=== PATIENT | male | born 1950 | race Caucasian/White ===

== ENCOUNTER 2016-12-11 06:47 | Emergency (ER) | payer SELFPAY ==
[~2016-12-11 06:47] MED LIST: ATACAND4 MG PO; CARDIZEM C1 PO; COMBIVENT RESPIMAT IN; FUROSEMIDE40 MG PO; ISOSORBIDE MONO30 MG PO; XARELTO10 MG PO; XARELTO15 MG PO
--- NOTE | 2016-12-11 08:34 | DIAGNOSTIC IMAGING REPORT ---
PROCEDURE: XR CHEST 1 VIEW INDICATION: SHORTNESS OF BREATH TECHNIQUE: Portable AP view (00 5 hours). COMPARISON: Compared to chest x-ray on 11/13/2016 and 10/24/2016. FINDINGS: Moderate cardiomegaly with mild pulmonary vascular congestion and interstitial changes. Mediastinum is normal. Thorax is normal. IMPRESSION: 1. Moderate cardiomegaly with mild congestive heart failure. 2. Findings discussed with Dr. Paniagua.
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
--- NOTE | 2016-12-11 09:42 | ED CLINICAL REPORT ---
Clinical Report - Physicians/Mid Levels [facility] [address] [place] [address] 12/11/2016 6:58 Patient: CLAYTON SRIVASTAVA Time Seen: 0645. Arrived- By private vehicle. Historian- patient. HISTORY OF PRESENT ILLNESS Chief Complaint: DYSPNEA. This started Early this morning and is still present (worsening). It was abrupt in onset but is not gone now. The dyspnea is worsened by exertion and is improved by rest. No sputum production, fever, sweating episodes or chest pain or discomfort. No calf pain, foot swelling or anxiety. Similar symptoms previously: ( history of atrial fibrillation). Recent medical care: Not recently seen/assessed. REVIEW OF SYSTEMS No nausea, vomiting, abdominal pain, black stools or bloody stools. No headache, blurred vision or skin rash. All systems otherwise negative, except as recorded above. PAST HISTORY See nurses notes. Risk factors for DVT/pulmonary embolism- prior history of DVT and pulmonary embolism, recent surgery, recent [place], congestive heart failure, clotting disorder, obesity, immobility and advanced age. SOCIAL HISTORY Smoker- current status unknown. No alcohol use or drug use. Is a local resident. FAMILY HISTORY Negative. ADDITIONAL NOTES The nursing notes have been reviewed. PHYSICAL EXAM Vital Signs: 12/11/2016 06:51 BP: 120/76. HR: 158. RR: 34. Temp: 97.7 F. Pain level now: 0/10. Oxygen saturation normal. Appearance: Alert. Patient in mild distress. Eyes: Pupils equal, round and reactive to light. Eyes normal inspection. ENT: Ears normal. Nose normal. Pharynx normal. Uvula midline. Neck: Normal inspection. No jugular venous distention. Neck supple. CVS: Normal heart rate and rhythm. Heart sounds normal. Pulses normal. Respiratory: No respiratory distress. Breath sounds normal. No stridor, rales or rhonchi. Abdomen: Soft and nontender. No organomegaly. Skin: Skin warm and dry. Normal skin color. No rash. Normal skin turgor. Extremities: Extremities exhibit normal ROM. No lower extremity edema. Neuro: Oriented X 3. No motor deficit. No sensory deficit. LABS, X-RAYS, AND EKG EKG: Atrial fibrillation (124). Abnormal P waves. Normal QRS complex. Normal axis. Normal ST and T waves. No ST elevation or depression. The study has been interpreted contemporaneously by me. The study has been independently viewed by me. The EKG appears to be a good tracing. I agree with and confirm the computer reading of the EKG. EKG #2: Atrial fibrillation (96). Not narrow complex atrial fibrillation. Abnormal P waves. Abnormal NI. Normal QRS complex. Normal axis. Normal ST and T waves, QT and QTc. When compared to prior EKG, new ischemic changes present. (rate controlled). The study has been interpreted contemporaneously. The study has been independently viewed by me. The EKG appears to be a good tracing. I agree with and confirm the computer reading of the EKG. Chest X-ray: (cardiomegaly. Increased pulmonary vasculature. No consolidations.). Views: PA. The X-rays were independently viewed by me and interpreted contemporaneously by me. A comparison with prior films reveals that the findings have worsened (Increased pulmonary vasculature.). CTA Pulmonary Arteries: Cardiomegaly. No evidence of pulmonary embolism. No pulmonary embolism, aortic aneurysm or aortic dissection. signs of congestive heart failure. No evidence of pulmonary embolism. The CTA was performed with contrast. The study was independently viewed by me and interpreted by the radiologist. The study was discussed with the radiologist (Via phone). Laboratory Tests: CBC w Diff: (NORA: 12/11/2016 07:05) ( MsgRcvd 12/11/2016 07:30) Final results Test Result Flag Units (Reference) WHITE BLOOD COUNT 7.8 K/uL (4.5-11.5) RED BLOOD COUNT 4.39 L M/uL (4.50-5.90) HEMOGLOBIN 12.4 L gm/dL (13.5-17.5) HEMATOCRIT 38.2 L % (41.0-53.0) MEAN CELL VOLUME 87 fL (80-100) MEAN CORPUSCULAR HGB 28 pg (26-34) MEAN CORPUSCULAR HGB CONC 32 g/dL (31-37) RED CELL DISTRIBUTION WIDTH 14.6 % (11.6-14.8) PLATELET COUNT 279 K/uL (150-400) NEUTROPHIL % 70.4 % (50-75) LYMPH % 21.2 L % (25-40) MONO % 6.8 % (3-14) EOSINOPHIL % 1.1 % (0-4) BASOPHIL % 0.5 % (0-2) PT with INR: (NORA: 12/11/2016 07:05) ( MsgRcvd 12/11/2016 07:32) Final results Test Result Flag Units (Reference) INR 1.1 (0.8-1.2) Low Intensity Therapy: INR 1.5-2.0 PT range 18.5-23.1Mod.Intensity Therapy: INR 2.0-3.0 PT range 23.1-31.5High Intensity Therapy: INR 2.5-3.5 PT range 27.4-35.5High Intensity Therapy 2: INR 3.0-4.0 PT range 31.5-39.3 D-DIMER QUANTITATIVE 0.84 H ug/mLFEU (0.27-0.52) The primary value of this quantitative assay relates toits negative predictive value (i.e. exclusion) of pulmonaryembolism/deep vein thrombosis/DIC.Elevated levels of d-dimer may also occur with:, age, cancer, inflammation, liver disease,post-op, infection, hematoma, coronary disease, peripheralarteriopathy, bleeding disorders and thrombolytic treatment.Results should be correlated with other clinical andradiological data.Testing Methodology: Latex Immunoassay . PROGRESS AND PROCEDURES Course of Care: the patient is a pleasant 66-year-old male with past medical history significant for atrial fibrillation and congestive heart failure. The patient presents for evaluation of shortness of breath. Patient has somewhat concerning story for shortness of breath. At this time differential diagnosis for thetrigger of the A. fib would be acute myocardial infarction, pulmonary embolism, or infectious etiology. Patient is in a mild amount of distress. Had discussion with patient in regards to cardioversion if he starts to become unstable. Patient's is agreeable to the treatment and plan. We'll monitor closely. 10 mg of diltiazem has been ordered for rate control of the patient's atrial fibrillation with rapid ventricular response. EKG, chest x-ray, and laboratory studies have been ordered. Patient was reevaluated after that the size and has been given. Patient with significant improvement with symptoms. Chest x-ray is also definitereviewed and the preliminary read is concerning for mild fluid overload. Patient with cardiomegaly on chest x-ray. EKG again redemonstrates atrial fibrillation with rapid ventricular response from initial presentation and repeat EKG has been ordered as patient now does not have a rapid ventricular response. The patient's laboratory studies has been remarkable for an elevated troponin. Patient's troponin is elevated greater than D upper limits of normal for indeterminate range. We will consult cardiology with these findings. the patient was reevaluated and continues to be non-tachycardic. D dimer is elevated. CT PE ordered. Patient's BNP is also elevated. Had discussion with cardiology in regards to the patient's signs and symptoms as well as his laboratory studies here in the emergency department today. Radiology recommended that the patient be admitted to their hospital. Spoke with babita mayer is a mid-level provider. The provider stated that there was a criticalcase they were attending to. they did offer to contact the house furnishings supervisor for good placement and consult of the hospitalist however because of the critical case they were having on their side, offered to contact their staff myself. Started heparin per cardiology's recs. We were able to contact the house furnishings supervisor about the patient. The patient is currently awaiting hospitalist consultation and bed availability. Had spoken to patient in regards to the workup, diagnosis, and plan of care. Patient is agreeable to the treatment and plan. patient transfered. Critical care performed (95 minutes). Time is exclusive of separately billable procedures. Time includes: direct patient care, patient reassessment, coordination of patient care, interpretation of data (laboratory data and chest xrays), review of patient's medical records, medical consultation and documentation of patient care. Consult obtained from cardiology. Disposition: Transferred to [facility]. CLINICAL IMPRESSION Non-ST segment elevation myocardial infarction atrial fibrillation with rapid ventricular response congestive heart failure, acute exacerbation. (Electronically signed by Ari Paniagua Dr. 12/15/2016 5:53)
--- NOTE | 2016-12-11 09:43 | ED ORDER SUMMARY ---
..... Patient: CLAYTON SRIVASTAVA OrderSheet [facility] VisitID: [id number] [address] [place] [address] 66y, M Registration Date/Time: 12/11/2016 ORDER SHEET Weight: 92.9 kg (stated) Allergies: No Known Drug Allergy GENERAL ORDERS: Chest 1V Urgent (06:56 12/11/2016 Socorro Keller) (Ack 7:03 JDeElena R.N.) (7:07 RFay) Official Court Reporter (Continuous) (sob) (06:56 12/11/2016 Socorro Keller) (7:00 JDeElena R.N.) CBC w Diff Urgent (06:57 12/11/2016 Socorro Keller) (Ack 7:03 JDeElena R.N.) (7:12 SBalde R.N.) CMP Urgent (06:12/11/2016 Socorro Keller) (Ack 7:03 JDeElena R.N.) (7:12 SBalde R.N.) PT with INR Urgent (06:57 12/11/2016 Socorro Keller) (Ack 7:03 JDeElena R.N.) (7:12 SBalde R.N.) Troponin-I Urgent (06:57 12/11/2016 Socorro Keller) (Ack 7:03 JDeElena R.N.) (7:12 SBalde R.N.) D-Dimer Urgent (06:57 12/11/2016 Socorro Keller) (Ack 7:03 JDeElena R.N.) (7:12 SBalde R.N.) Pulse oximeter (06:57 12/11/2016 Socorro Keller) (7:00 JDeElena R.N.) Oxygen (2 L/min) (NC) (06:57 12/11/2016 Socorro Keller) (7:00 JDeElena R.N.) TSH Urgent (07:28 12/11/2016 Socorro Keller) (7:48 EHassan R.N.) CTA Thorax w Cont (No) (grf > 60) Urgent (07:55 12/11/2016 Socorro Keller) (Ack 8:01 [facility] (10:06 Carie R.N.) BNP Urgent (08:34 12/11/2016 Socorro Keller) (Ack 8:38 [facility]) (9:33 EHnellie R.N.) EKG - ER Stat (09:15 12/11/2016 [facility] verbal order read back to Socorro Keller) (9:[facility] - ER Repeat Stat (09:15 [facility] Socorro Keller[facility] (9:15 [facility]) Urinalysis Urgent (10:13 12/11/2016 Carie Ngo verbal order read back to Socorro Keller) (10:14 Carie R.N.) MEDICATION ORDERS: Metoprolol PO 25 mg (HIGH ALERT MEDICATION, NOW) (09:34 12/11/2016 Socorro Keller) (10:07 Carie R.N.) IV FLUIDS: IV NS : initial bolus 1000 mL (1000 mL/hr), then none - for X1 (NOW) (06:56 12/11/2016 Socorro Keller) (7:13 SBmitchell R.N.) Diltiazem IV 10 mg (HIGH ALERT MEDICATION, NOW) (06:56 12/11/2016 Socorro Keller) (7:13 Laxmi R.N.) Heparin IV : initial bolus 60 units/kg, then none - for X1 (once now. max 5000 u) (09:40 12/11/2016 Socorro Keller) (10:30 Carie R.N.) Heparin IV : initial bolus none -, then 12 units/kg/hr for 24h (start after bolus. max 1000 u/hr) (09:40 12/11/2016 Socorro Keller) (10:31 Carie R.N.) ORDER SHEET NOTES: [Electronically signed by Jennifer Sandoval R.N. (13:47 12/11/2016)] [Electronically signed by Ari Paniagua Dr. (05:53 12/15/2016)] [Electronically locked/signed by Jennifer Sandoval R.N. (13:47 12/11/2016)Lalo
--- NOTE | 2016-12-11 09:43 | ED ORDER SUMMARY ---
..... Patient: CLAYTON SRIVASTAVA OrderSheet [facility] VisitID: [id number] [address] [place] [address] 66y, M Registration Date/Time: 12/11/2016 ORDER SHEET Weight: 92.9 kg (stated) Allergies: No Known Drug Allergy GENERAL ORDERS: Chest 1V Urgent (06:56 12/11/2016 Socorro Keller) (Ack 7:03 JDeElena R.N.) (7:07 RFay) Soft Work Wrapper Layer And Examiner (Continuous) (sob) (06:56 12/11/2016 Socorro Keller) (7:00 JDeElena R.N.) CBC w Diff Urgent (06:57 12/11/2016 Socorro Keller) (Ack 7:03 JDeElena R.N.) (7:12 SBalde R.N.) CMP Urgent (06:12/11/2016 Socorro Keller) (Ack 7:03 JDeElena R.N.) (7:12 SBalde R.N.) PT with INR Urgent (06:57 12/11/2016 Socorro Keller) (Ack 7:03 JDeElena R.N.) (7:12 SBalde R.N.) Troponin-I Urgent (06:57 12/11/2016 Socorro Keller) (Ack 7:03 JDeElena R.N.) (7:12 SBalde R.N.) D-Dimer Urgent (06:57 12/11/2016 Socorro Keller) (Ack 7:03 JDeElena R.N.) (7:12 SBalde R.N.) Pulse oximeter (06:57 12/11/2016 Socorro Keller) (7:00 JDeElena R.N.) Oxygen (2 L/min) (NC) (06:57 12/11/2016 Socorro Keller) (7:00 JDeElena R.N.) TSH Urgent (07:28 12/11/2016 Socorro Keller) (7:48 EHassan R.N.) CTA Thorax w Cont (No) (grf > 60) Urgent (07:55 12/11/2016 Socorro Keller) (Ack 8:01 [facility]) (10:06 Carie R.N.) BNP Urgent (08:34 12/11/2016 Socorro Keller) (Ack 8:38 [facility]) (9:33 EHnellie R.N.) EKG - ER Stat (09:15 12/11/2016 [facility] verbal order read back to Socorro Keller) ([facility] EKG - ER Repeat Stat (09:15 [facility]/2016 [facility] Socorro Keller[facility] (9:15 [facility]) Urinalysis Urgent (10:13 12/11/2016 Carie Ngo verbal order read back to Socorro Keller) (10:14 Carie R.N.) MEDICATION ORDERS: Metoprolol PO 25 mg (HIGH ALERT MEDICATION, NOW) (09:34 12/11/2016 Socorro Keller) (10:07 Carie R.N.) IV FLUIDS: IV NS : initial bolus 1000 mL (1000 mL/hr), then none - for X1 (NOW) (06:56 12/11/2016 Socorro Keller) (7:13 SBmitchell R.N.) Diltiazem IV 10 mg (HIGH ALERT MEDICATION, NOW) (06:56 12/11/2016 Socorro Keller) (7:13 Laxmi R.N.) Heparin IV : initial bolus 60 units/kg, then none - for X1 (once now. max 5000 u) (09:40 12/11/2016 Socorro Keller) (10:30 Carie R.N.) Heparin IV : initial bolus none -, then 12 units/kg/hr for 24h (start after bolus. max 1000 u/hr) (09:40 12/11/2016 Socorro Keller) (10:31 Carie R.N.) ORDER SHEET NOTES: [Electronically signed by Jennifer Sandoval R.N. (13:47 12/11/2016)] [Electronically signed by Ari Paniagua Dr. (05:53 12/15/2016)] [Electronically locked/signed by Jennifer Sandoval R.N. (13:47 12/11/2016)Lalo
--- NOTE | 2016-12-11 10:21 | DIAGNOSTIC IMAGING REPORT ---
PROCEDURE: CTA THORAX WITH CONTRAST INDICATION: SHORTNESS OF BREATH TECHNIQUE: 124 ml of Isovue 370 was injected intravenously and axial images were obtained of the entire thorax with 3D sagittal and coronal MIP reconstructions. COMPARISON: Comparison made to chest x-ray earlier today (see 12/11/2016) FINDINGS: Moderate cardiomegaly with mild pulmonary vascular congestion, and mild interstitial edema. There is a small to moderate right pleural effusion with small left pleural effusion. There is mild bibasilar compressive atelectasis (right greater than left). Allowing for mild motion, pulmonary vessels are normal and there is no evidence of pulmonary embolus. Mediastinum is normal. There are moderate degenerative changes of the thoracic spine. There are three to four calcified gallstones (largest 2 cm). IMPRESSION: 1. Moderate cardiomegaly with mild to moderate congestive heart failure. 2. Small to moderate right and small left pleural effusions. 3. Mild bibasilar compressive atelectasis (right greater than left). 4. No evidence of pulmonary embolus. 5. Cholelithiasis (3-4 calcified gallstones, largest 2 cm). 6. Findings discussed with Dr. Grant Cormier. All CT scans at this facility use dose modulation, iterative reconstruction, and/or weight-based dosing when appropriate to reduce radiation dose to as low as reasonably achievable.
--- NOTE | 2016-12-15 05:54 | ED MAR SUMMARY ---
..... Medication Administration Record [facility] [address] [place] [address] Patient: CLAYTON SRIVASTAVA Visit ID: [id number] 66y, M Weight: 92.9 kg Height/Length: 72 in BMI: 27.8 ALLERGIES: No Known Drug Allergy Start 07:13 12/11/2016 Kiana Sandoval R.N., Stop 08:37 12/11/2016 Akua Urrutia R.N. Medication Administered: IV NS (SALINE), Dose: IV Fluids over 1 hour(s), Rate: 1000 mL/hr, Dispensed: 1000 mL bag, Site: #1 left hand. Medication Ordered: IV NS : initial bolus 1000 mL (1000 mL/hr), then none - for X1 (NOW). Given 07:12/11/2016 Kiana Sandoval R.N. Medication Administered: DILTIAZEM [IVP], Dose: 10 mg IVP over 4 minute(s), Site: #1 left hand. Medication Ordered: Diltiazem IV 10 mg (HIGH ALERT MEDICATION, NOW). Given 10:07 12/11/2016 Jennifer Sandoval R.N. Medication Administered: METOPROLOL [PO], Dose: 25 mg Tablets PO. Medication Ordered: Metoprolol PO 25 mg (HIGH ALERT MEDICATION, NOW). Given 10:28 12/11/2016 Jennifer Sandoval R.N. Medication Administered: HEPARIN [IVP], Dose: 2500 unit IVP over 3 minute(s), Site: #1 left hand. Medication Ordered: Heparin IV : initial bolus 60 units/kg, then none - for X1 (once now. max 5000 u). Given 10:31 12/11/2016 Jennifer Sandoval R.N. Medication Administered: HEPARIN [IVP], Dose: 2500 unit IVP over 6 hour(s), Site: #1 left hand. Medication Ordered: Heparin IV : initial bolus none -, then 12 units/kg/hr for 24h (start after bolus. max 1000 u/hr).
--- NOTE | 2016-12-15 05:54 | ED DISCHARGE INSTRUCTIONS ---
Patient: CLAYTON SRIVASTAVA General Instructions [facility] VisitID: [id number] [address] [place] [address] 66y, M Registration Date/Time: 12/11/2016 Non-ST segment elevation myocardial infarction atrial fibrillation with rapid ventricular response congestive heart failure, acute exacerbation. (Electronically signed by Ari Paniagua Dr. 12/15/2016 5:53)
--- NOTE | 2016-12-15 05:54 | ED MED RECONCILIATION SUMMARY ---
Patient: CLAYTON SRIVASTAVA Medication Reconciliation Report [facility] VisitID: [id number] [address] [place] [address] 66y, M Registration Date/Time: 12/11/2016 Weight: 92.9 kg Height/Length: 72 in. BMI: 27.8 ALLERGIES: No Known Drug Allergy The patient's Home Medications are listed below: THE FOLLOWING MEDICATIONS NEED TO BE RECONCILED: Digoxin Oral Diuretics x 2 INHALER Xarelto Oral The source(s) of the original Home Medication information: patient The following Medications were given to the patient in the Emergency Department: IV NS IV Fluids bolus 0, then 1000 mL/hr, administered: 12/11/2016 7:13:00 AM Diltiazem [IVP] IVP 10 mg, administered: 12/11/2016 7:13:00 AM Metoprolol [PO] PO 25 mg, administered: 12/11/2016 10:07:00 AM Heparin [IVP] IVP 2500 unit, administered: 12/11/2016 10:28:00 AM Heparin [IVP] IVP 2500 unit, administered: 12/11/2016 10:31:00 AM The following Medications were prescribed to the patient: None.
--- NOTE | 2016-12-15 05:54 | ED MAR SUMMARY ---
..... Medication Administration Record [facility] [address] [place] [address] Patient: CLAYTON SRIVASTAVA Visit ID: [id number] 66y, M Weight: 92.9 kg Height/Length: 72 in BMI: 27.8 ALLERGIES: No Known Drug Allergy Start 07:13 12/11/2016 Kiana Sandoval R.N., Stop 08:37 12/11/2016 Akua Urrutia R.N. Medication Administered: IV NS (SALINE), Dose: IV Fluids over 1 hour(s), Rate: 1000 mL/hr, Dispensed: 1000 mL bag, Site: #1 left hand. Medication Ordered: IV NS : initial bolus 1000 mL (1000 mL/hr), then none - for X1 (NOW). Given 07:12/11/2016 Kiana Sandoval R.N. Medication Administered: DILTIAZEM [IVP], Dose: 10 mg IVP over 4 minute(s), Site: #1 left hand. Medication Ordered: Diltiazem IV 10 mg (HIGH ALERT MEDICATION, NOW). Given 10:07 12/11/2016 Jennifer Sandoval R.N. Medication Administered: METOPROLOL [PO], Dose: 25 mg Tablets PO. Medication Ordered: Metoprolol PO 25 mg (HIGH ALERT MEDICATION, NOW). Given 10:28 12/11/2016 Jennifer Sandoval R.N. Medication Administered: HEPARIN [IVP], Dose: 2500 unit IVP over 3 minute(s), Site: #1 left hand. Medication Ordered: Heparin IV : initial bolus 60 units/kg, then none - for X1 (once now. max 5000 u). Given 10:31 12/11/2016 Jennifer Sandoval R.N. Medication Administered: HEPARIN [IVP], Dose: 2500 unit IVP over 6 hour(s), Site: #1 left hand. Medication Ordered: Heparin IV : initial bolus none -, then 12 units/kg/hr for 24h (start after bolus. max 1000 u/hr).
--- NOTE | 2016-12-15 05:54 | ED MED RECONCILIATION SUMMARY ---
Patient: CLAYTON SRIVASTAVA Medication Reconciliation Report [facility] VisitID: [id number] [address] [place] [address] 66y, M Registration Date/Time: 12/11/2016 Weight: 92.9 kg Height/Length: 72 in. BMI: 27.8 ALLERGIES: No Known Drug Allergy The patient's Home Medications are listed below: THE FOLLOWING MEDICATIONS NEED TO BE RECONCILED: Digoxin Oral Diuretics x 2 INHALER Xarelto Oral The source(s) of the original Home Medication information: patient The following Medications were given to the patient in the Emergency Department: IV NS IV Fluids bolus 0, then 1000 mL/hr, administered: 12/11/2016 7:13:00 AM Diltiazem [IVP] IVP 10 mg, administered: 12/11/2016 7:13:00 AM Metoprolol [PO] PO 25 mg, administered: 12/11/2016 10:07:00 AM Heparin [IVP] IVP 2500 unit, administered: 12/11/2016 10:28:00 AM Heparin [IVP] IVP 2500 unit, administered: 12/11/2016 10:31:00 AM The following Medications were prescribed to the patient: None.
--- NOTE | 2016-12-15 05:54 | ED DISCHARGE INSTRUCTIONS ---
Patient: CLAYTON SRIVASTAVA General Instructions [facility] VisitID: [id number] [address] [place] [address] 66y, M Registration Date/Time: 12/11/2016 Non-ST segment elevation myocardial infarction atrial fibrillation with rapid ventricular response congestive heart failure, acute exacerbation. (Electronically signed by Ari Paniagua Dr. 12/15/2016 5:53)
== END 2016-12-11 13:20 | disposition short-term general hospital (02) ==
LOC: ED SRH 06:47
DX: I21.4 Non-ST elevation (NSTEMI) myocardial infarction (principal); I50.9 Heart failure, unspecified; I48.91 Unspecified atrial fibrillation; I10 Essential (primary) hypertension; F17.210 Nicotine dependence, cigarettes, uncomplicated